=== PATIENT | male | born 1950 | race Caucasian/White ===

== ENCOUNTER 2019-01-25 13:57 | Inpatient (IN) | payer BC ==
[~2019-01-25] VITALS: Ht 185.4 cm; Wt 78.0 kg
[~2019-01-25 13:57] MED LIST: ACET500 PO; ACYC5TO15G TOP; ASPI325 PO; ATEN50 PO; CIPR500 PO; CLOB.05TC TOP; DIAZ5 PO; DIPH50 PO; GABA600 PO; Glucagon Emergen1 MG IJ; Glucosamine-Ch1 EACH PO; INS70/30PN SC; INSULANPEN SC; MUPI2TC TOP; Novolog100 UNIT/2 SC; Percocet 10-321 EACH PO; QUIN10 PO; Qualaquin324 MG PO; SIMV10 PO; TAMS.4ER PO; TRIA80TC TOP; Ultram50 MG PO; Valtrex1000 MG PO
[2019-01-25 14:39] LABS: Hematocrit 39.8 % (37.0-53.0); Hemoglobin 13.7 g/dL (13.5-17.5); Mean Corpuscular HGB 30.3 pg (26.0-34.0); Mean Corpuscular HGB Conc 34.4 g/dL (31.5-36.5); Mean Corpuscular Volume 88 fL (80-100); Platelet Count 203 K/mm3 (150-400); RDW Coefficient Variation 14.4 % (11.7-14.2); RDW Standard Deviation 45.5 fL (35.1-46.3); Red Blood Cell Count 4.52 M/mm3 (4.30-5.90); White Blood Cell Count 14.64 K/mm3 (4.00-11.30)
[2019-01-25 14:46] LABS: Alanine Aminotransfer (ALT/SGP 33 U/L (12-78); Albumin, Blood 3.9 g/dL (3.4-5.0); Albumin/Globulin Ratio 1.3 (0.8-1.8); Alk Phos 54 U/L (50-136); Anion Gap 6 mmol/L (6-16); Aspartate Aminotrans (AST/SGOT 19 U/L (12-37); Bilirubin, Total 0.8 mg/dL (0.1-1.0); Blood Urea Nitrogen 11 mg/dL (8-24); Bun/Creatinine Ratio 14.5 (12.0-20.0); CO2, Blood 29 mmol/L (21-32); Calcium, Blood 8.9 mg/dL (8.5-10.1); Chloride, Blood 106 mmol/L (98-108); Creatinine, Blood 0.76 mg/dL (0.60-1.20); Globulin, Blood 2.9 g/dL (2.2-4.0); Glomerular Filtration Rate >60 (60-); Glucose, Blood 137 mg/dL (70-99); Potassium, Blood 4.1 mmol/L (3.5-5.5); Sodium, Blood 141 mmol/L (136-145); Total Protein, Blood 6.8 g/dL (6.4-8.2)
[2019-01-25 15:47] LABS: BASOPHILS ABSOLUTE MAN 0.14 K/mm3 (0.00-0.23); BASOPHILS PERCENT MAN 1 % (0-2); EOSINOPHILS ABSOLUTE MAN 0.14 K/mm3 (0.00-0.68); EOSINOPHILS PERCENT MAN 1 % (0-6); LYMPHOCYTES ABSOLUTE MAN 9.66 K/mm3 (0.84-5.20); LYMPHOCYTES PERCENT MAN 66 % (21-46); MONOCYTES ABSOLUTE MAN 1.02 K/mm3 (0.16-1.47); MONOCYTES PERCENT MAN 7 % (4-13); NEUTROPHILS ABSOLUTE MAN 3.66 K/mm3 (1.96-9.15); SEG NEUTROPHILS PERCENT MAN 25 % (41-73); TOTAL CELLS COUNTED 100
[2019-01-25] MEDS ORDERED: ROSU10TA PO (17:19)
[2019-01-25] MEDS ORDERED: ATEN50 PO (17:20)
[2019-01-25] MEDS ORDERED: OLME20 PO (17:20)
[2019-01-25] MEDS ORDERED: GABA300 PO (17:20)
[2019-01-25] MEDS ORDERED: TUMS500 MG PO (17:21)
[2019-01-25] MEDS ORDERED: MAGNESIUM OXID500 MG PO (17:21)
[2019-01-25] MEDS ORDERED: Flomax0.4 MG PO (17:21)
[2019-01-25] MEDS ORDERED: Flonase 0.05% N16 GM (17:22)
[2019-01-25] MEDS ORDERED: ACET325 PO (17:22)
[2019-01-25] MEDS ORDERED: BUDE6HFA INH (17:22)
[2019-01-25] MEDS ORDERED: BENADRYL25 MG PO (18:12)
--- NOTE | 2019-01-26 07:43 | NUR ---
PT ADMITTED DURING NIGHT S/P FALL WITH FX RIBS.I SPOKE WITH DR CARUSO LAST NIGHT AND ADVISED OF HYPOGLYCEMIA ON ARRIVAL WITH OJ GIVEN TO INCREASE CBG LEVEL. DIET ORDERS GIVE. PT TOLERATING PO WITHOUT NAUSEA.REQUIRING DILAUDID FOR PAIN.VOIDING CLEAR YELLOW. RESP APPEAR EVEN AND UNLAABORED. DENIES SOB. C/O KEYS AND NECK PAIN THIS AM.DAY RN AGREES TO FOLLOW UP. PT ALERT AND ORIENTED.PUPILS REMAIN EQUAL AND REACTIVE TO LIGHT.
--- NOTE | 2019-01-26 08:56 | NUR ---
DR. SMITH NOTIFIED OF HEADACHE AND PT COMPLAINING OF HIS TEETH HURTING. PT DENIES LOC AFTER FALL OFF THE LADDER. PUPILS EQUAL ROUND AND REACTIVE TO LIGHT. PT MOVES ALL EXTREMITIES WELL. VSS. WILL CONTINUE TO MONITOR.
--- NOTE | 2019-01-26 12:47 | NUR ---
DR. BEAVER ROUNDED ON THE PT. HE WAS NOTIFIED THAT PT DOES NOT HAVE ADDITIONAL ASSISTANCE AT HOME UNTIL FAMILY CAN ARRIVE FROM OUT OF STATE. PT IS STILL REQUIRING IV DILAUDID FOR BREATHROUGH PAIN. DR. BEAVER WAS NOTIFIED THAT THE PATIENT TAKES INSULIN BASED ON HIS HOME ROUTINE. PT DECIDES WHAT TO TAKE BY LOOKING AT HIS FOOD, HE REPORTS HE DOES NOT USE CARB COUNTING OR ANY EQUATION TO DECIDE HOW MUCH INSULIN TO TAKE. HE ALSO REQUEST TO TAKE INSULIN BEFORE AND AFTER MEALS. WILL CONTINUE TO MONITOR.
[2019-01-26] MEDS ORDERED: BUDE6HFA INH (13:16)
--- NOTE | 2019-01-26 18:02 | NUR ---
ASSUMED CARE OF PT, REFUSED ANY INSULIN AT DINNERTIME, REFUSED TO TAKE COZAAR, EXPLAINED TO PT SEVERAL TIMES THAT IT IS A FORMULARY SUB FOR BENICAR, STATES HE DOESN'T TAKE MED AT HOME BUT IT IS LISTED IN HIS HOME MED LIST PT NOTIFIED AND GIVEN PT EDUCATION PRINTOUTS ON BOTH MEDS, VERIFIED WITH PT'S PHARMACY ([facility]) THAT PT JUST PICKED UP RX FOR BENICAR 9 DAYS AGO STATES "I WILL RUN THIS BY MY , SHE'S A NURSE PRACTITIONER," NO OTHER CHANGES THIS SHIFT.
--- NOTE | 2019-01-27 07:42 | NUR ---
SHIFT SUMMARY LYING IN SEMI FOWLERS WITH EYES OPEN. DR. KAPLAN SAW PT AT BEDSIDE AT 0615 WITH NURSING AT SIDE TO ANSWER QUESTIONS. PAIN WELL MAMANGED WITH PO BRIANNA AND DILAUDID FOR BREAKTHROUGH. ATE BANANAS AND DRANK ORANGE JUICE THROUGHOUT SHIFT. DENIES FURTHER NEEDS AT THIS TIME. SAFETY MEASURES IN PLACE. HAND OFF GIVEN TO DAY SHIFT USING SBAR.
--- NOTE | 2019-01-27 18:36 | NUR ---
PT RECENTLY REQ TO TAKE MORE INSULIN RELATED TO EATING HIS DINNER. CBG CHECKED BY HIS HOME METER. 271. PT ON LSS WHICH STATES TO GIVE 4 UNITS OF INSULIN. PT REQ TO HAVE [address] EUSEBIO PARR, REPORTS PT MAY HAVE 6 UNITS AT THIS TIME. SEE EMAR.
--- NOTE | 2019-01-27 18:46 | NUR ---
SHIFT SUMMARY: NO ACUTE CHANGES THIS SHIFT. VSS. WORKED WITH PT/OT TODAY. USING IV DILADID WELL PO NARCOTICS. RATES PAIN 7/10 BUT IS LYING IN BED CHATTING WITH FRIENDS/FAMILY, LAUGHING AND JOKING. FACE SCALE 2/10. DISCHARGE PLANNING WORKING WITH HIM, STATES NEEDS HOSPITAL BED, BEDSIDE COMMODE AND TRAPEZE BEFORE HE CAN GO HOME. REFUSED MIRALAX THIS MORNING. STATES HE DOESN'T WANT TO HAVE A BOWEL MOVEMENT D/T PAIN. EDUCATED THAT IT WILL BE MUCH MORE PAINFUL IF HE BECOMES CONSTIPATED AND THAT IT IS HIGHLY LIKELY DUE TO THE USE OF NARCOTIC PAIN MEDICATION. ABLE TO MAKE HIS NEEDS KNOWN. USES HIS CALL LIGHT. HAS IMPLANTED GLUCOMETER AND METER AT BEDSIDE. LYING IN BED WITH CALL LIGHT IN REACH.
--- NOTE | 2019-01-28 06:20 | NUR ---
0620: DR. KAPLAN MAKES ROUNDS ON PATIENT.
--- NOTE | 2019-01-28 09:08 | NUR ---
PT LYING IN BED WITH EYES CLOSED, SNORING RESPIRATIONS.
--- NOTE | 2019-01-28 09:22 | NUR ---
OT TO WORK WITH PT.
--- NOTE | 2019-01-28 19:14 | NUR ---
SHIFT SUMMARY; NO ACUTE CHANGES THIS SHIFT. VSS. NO BM, SUPPOSITORY GIVEN. PT SHOWERED HIMSELF TODAY. DISCUSSED PAIN MANAGEMENT. ASSISTED WITH ADLs PRN. MULTIPLE DOCTORS TO SEE PT. FAMILY IN AND OUT OF ROOM. ENCOURAGED MOBILITY.
--- NOTE | 2019-01-29 07:56 | NUR ---
SHIFT SUMMARY: PT A&O X4. VS WNL T/O SHIFT. PAIN BEING MANAGED WITH 2 OXY PER EMAR. GIVEN TYLENOL ONCE. PT HAD 2 BM'S THIS SHIFT. CBG ELEVATED. ORDER TO GIVE 4 UNITS PER SS LAST NIGHT, HOWEVER PATIENT REQUESTING TO RECIEVE 3 UNITS. PT CHECKING OWN BLOOD SUGAR USING IMPLANTED GLUCOMETER. DR KAPLAN IN TO SEE PT THIS MORNING AT APPROX 0615. DISCHARGE ORDER IN.
[2019-01-29] MEDS ORDERED: DOCU100 PO (08:13)
[2019-01-29] MEDS ORDERED: Fentanyl1 EACH TOP (08:14)
[2019-01-29] MEDS ORDERED: MELO7.5 PO (08:15)
[2019-01-29] MEDS ORDERED: OXYC1TAB11 PO (08:16)
[2019-01-29] MEDS ORDERED: OMEPRAZOLE20 MG PO (08:17)
[2019-01-29] MEDS ORDERED: Calcitonin-Sal3.7 ML (08:17)
--- NOTE | 2019-01-29 16:41 | NUR ---
DISCHARGED PAPERWORK SIGNED, AWAITING RIDE.
--- NOTE | 2019-01-29 18:23 | NUR ---
DISCHARGE SUMMARY PT DISCHARGED HOME WITH CHILDREN AT 1740 TODAY AFTER WAITING SEVERAL HOURS FOR A RIDE. DISCHARGE INSTRUCTIONS AND PERSONAL ITEMS WERE PROVIDED TO BOTH PATIENT/FAMILY AND CARRIED OUT. SCRIPTS GIVEN TO ADULT CHILDREN THAT WERE FILLED AT PHARMACY PRIOR TO PT LEAVING UNIT. PAIN MANAGED AT REPORTED TOLERABLE LEVEL WITH PO PAIN PILLS PER EMAR AND ICE. PT REPORTED VOIDING T/O SHIFT W/OUT DIFFICULTY. ABLE TO TRANSFER AND DRESS SELF. A & O W/VSS.
== END 2019-01-29 17:43 | disposition home or self-care (01) | DRG 184 ==
LOC: ER 13:57 → SURS 13:58 → ER 13:58 → SURS 20:20
PROVIDERS: Emergency Medicine; ADMIT Surgery
DX: S22.41XA Multiple fractures of ribs, right side, initial encounter for closed fracture (principal); C91.10 Chronic lymphocytic leukemia of B-cell type not having achieved remission; J93.9 Pneumothorax, unspecified; I10 Essential (primary) hypertension; E78.5 Hyperlipidemia, unspecified; N40.0 Benign prostatic hyperplasia without lower urinary tract symptoms; K21.9 Gastro-esophageal reflux disease without esophagitis; E10.9 Type 1 diabetes mellitus without complications; W11.XXXA Fall on and from ladder, initial encounter; R40.2410 Glasgow coma scale score 13-15, unspecified time; Z79.4 Long term (current) use of insulin; Z79.51 Long term (current) use of inhaled steroids; Z79.899 Other long term (current) drug therapy
CPT/HCPCS: 36415; 71046; 71250; 74176; 80053; 82947; 85025; 90471; 90714; 93005; 93010; 94640; 94760; 96361; 96374; 96375; 96376; 97162; 97166; 97530; 97535; 99285-25; A9270; J1170; J1885; J2405; J3010; J7030

== ENCOUNTER → 2019-03-17 | Outpatient (CLI) | payer BC ==
[~2019-03-17] MED LIST changes: +ACET325 PO; +BENADRYL25 MG PO; +BUDE6HFA INH; +Calcitonin-Sal3.7 ML; +DOCU100 PO; +Fentanyl1 EACH TOP; +Flomax0.4 MG PO; +Flonase 0.05% N16 GM; +GABA300 PO; +MAGNESIUM OXID500 MG PO; +MELO7.5 PO; +OLME20 PO; +OMEPRAZOLE20 MG PO; +OXYC1TAB11 PO; +ROSU10TA PO; +TUMS500 MG PO
== END ==
LOC: LAB EV 15:56 → LAB SHORT 15:56
DX: R21 Rash and other nonspecific skin eruption (principal)
CPT/HCPCS: 87070; 87205

== ENCOUNTER → 2019-03-20 | Outpatient (CLI) | payer BC | END | disposition home or self-care (01) | LOC: LAB SHORT 14:25 → LAB 14:25 | DX: R21 Rash and other nonspecific skin eruption (principal) | CPT/HCPCS: 87015; 87071; 87075; 87102; 87116; 87205; 87206 ==

== ENCOUNTER → 2021-03-03 | Outpatient (CLI) | payer BC | LOC: LAB SHORT 10:00 → LAB 10:00 | DX: D48.5 Neoplasm of uncertain behavior of skin (principal); L82.0 Inflamed seborrheic keratosis; L53.8 Other specified erythematous conditions; L29.8 Other pruritus; Z88.8 Allergy status to other drugs, medicaments and biological substances; Z91.041 Radiographic dye allergy status | CPT/HCPCS: 87070; 87205 ==